=== PATIENT | male | born 1965 | race Caucasian/White ===

== ENCOUNTER 2016-09-05 06:06 | Emergency (ER) | payer MEDICAID, OTHER ==
[~2016-09-05] VITALS: Ht 165.1 cm; Wt 65.0 kg
[2016-09-05] MEDS ORDERED: LIDOCAINE 1%/EPI 30 ML INJ INJ STA (06:12)
[2016-09-05 06:15] VITALS: Ht 165.1 cm; Wt 65.0 kg
[2016-09-05] MEDS ORDERED: LIDOCAINE 2%/EPI MPF (SDV) 20 ML VIAL INJ ONE (06:30)
[2016-09-05] MEDS ORDERED: DIPHTH/TET/ACEL PERTUSS (ADULT) 0.5 ML VIAL IM* ONE (06:30)
[2016-09-05] MEDS ORDERED: ACETAMINOPHEN 325 MG TAB PO ONE (06:30)
[2016-09-05] MEDS ORDERED: CEPH-443 PO (07:06)
[2016-09-05] MEDS ORDERED: ACET325T33 PO (07:06)
[2016-09-05] MEDS ORDERED: SULF1TAB31 PO (07:06)
--- NOTE | 2016-09-05 07:28 | RADRPT ---
PROCEDURE: Right wrist x-ray CLINICAL INDICATION: Fall TECHNIQUE: AP, lateral and oblique views of the wrist were obtained. COMPARISON: Plain radiographs of the right hand from 06/26/2014 FINDINGS: There is normal mineralization. Deformity of the distal radius, ulnar, and fifth metacarpal are again noted consistent with remote f ractures, unchanged. No acute fracture or dislocation is seen. There are no significant degenerative changes. There is no significant soft tissue swelling. RPTAT: AA IMPRESSION: No evidence of an acute fracture. Deformity of the distal radius, ulna, and fifth metacarpal are again noted consistent with remote fr actures. Physician Coreen Date Time Electronically viewed and signed by Physician Coreen on 09/05/2016 07:27 RA/
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
[2016-09-05 08:32] VITALS: BP 135/84; PULSE 70; RESP 20; TEMP 98.6
== END 2016-09-05 08:32 | disposition home or self-care (01) ==
LOC: E/R 06:06
DX: S81.812A Laceration without foreign body, left lower leg, initial encounter (principal); S60.811A Abrasion of right wrist, initial encounter; R22.42 Localized swelling, mass and lump, left lower limb; F17.210 Nicotine dependence, cigarettes, uncomplicated; W26.8XXA Contact with other sharp object(s), not elsewhere classified, initial encounter; Y92.9 Unspecified place or not applicable; Z23 Encounter for immunization
CPT/HCPCS: 90471; 90715